=== PATIENT | male | born 1985 | race Caucasian/White ===

== ENCOUNTER 2016-03-08 08:10 | Emergency (ER) | payer OTHER, SELFPAY ==
[2016-03-08 08:27] VITALS: BP 129/86; PULSE 85; O2SAT 100
--- NOTE | 2016-03-08 08:38 | ERPHSYRPT ---
- History of Present Illness Time Seen by Provider: 03/08/16 08:29 Source: patient Exam Limitations: no limitations Patient Subjective Stated Complaint: states he fell two to three steps off a ladder this am Triage Nursing Assessment: ambulated to room per self without difficulty. skin w/d, color normal, resp easy. slight swelling noted to right hand. no deformity noted. Physician History: The patient is a 30-year-old male who states he was climbing a ladder to take down [place] on Wednesday at 8 AM at 5F when he slipped and fell off the ladder causing pain to his right thumb and back. He is right-handed. He did not take anything for the pain. He states he is allergic to Toradol because when he had a colonoscopy he was given Toradol and developed a rash while he was still under and had no rash when he recovered from the colonoscopy. He was told that he has an allergy to it. He has a past medical history significant for Crohn's disease and numerous episodes of ingestion of foreign bodies to the GI tract. Pt also states he has history of rectal prolapse and recently the prolapse is not staying in place when he pushes it back in. Occurred: just prior to arrival Reason for Fall: fell from height Injuries/Pain Location: back (and right thumb) Loss of Consciousness: no loss of consciousness Quality: aching Severity of Pain-Max: moderate Severity of Pain-Current: moderate Modifying Factors: Improves With: nothing Associated Symptoms (Fall): back pain, other (right thumb) Allergies/Adverse Reactions: cephalexin monohydrate [From Keflex] Allergy (Verified 03/08/16 08:20) ketorolac tromethamine [From Toradol] Adverse Reaction (Verified 03/08/16 08:20) Home Medications: Dicyclomine HCl 20 mg [Bentyl 20 mg] 20 mg PO TID 03/30/15 [History] Hx Tetanus, Diphtheria Vaccination/Date Given: Yes (2015) Hx Influenza Vaccination/Date Given: Yes Hx Pneumococcal Vaccination/Date Given: No - Review of Systems Constitutional: No Fever, No Chills Eyes: No Symptoms Ears, Nose, & Throat: No Symptoms Respiratory: No Cough, No Dyspnea Cardiac: No Chest Pain, No Edema, No Syncope Abdominal/Gastrointestinal: No Abdominal Pain, No Nausea, No Vomiting, No Diarrhea Genitourinary Symptoms: No Dysuria Musculoskeletal: Back Pain, Fall, Joint Pain (right thumb) Skin: No Rash Neurological: No Dizziness, No Focal Weakness, No Sensory Changes Psychological: No Symptoms Endocrine: No Symptoms Hematologic/Lymphatic: No Symptoms Immunological/Allergic: No Symptoms All Other Systems: Reviewed and Negative - Past Medical History Pertinent Past Medical History: Yes Neurological History: No Pertinent History ENT History: No Pertinent History Cardiac History: No Pertinent History Respiratory History: No Pertinent History Endocrine Medical History: No Pertinent History Musculoskeletal History: No Pertinent History GI Medical History: Crohns Disease, Hepatitis, Other History: No Pertinent History Psycho-Social History: Anxiety, Depression, Other Male Reproductive Disorders: No Pertinent History Other Medical History: 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 multiple scope for foreign body removal - Social History Smoking Status: Never smoker How long have you smoked: 10 Exposure to second hand smoke: Yes Drug Use: none Patient Lives Alone: No - Nursing Vital Signs Nursing Vital Signs: Initial Vital Signs Temperature 98 F Temperature Source Oral Pulse Rate 85 Respiratory Rate 16 Blood Pressure 129/86 Pain Intensity 8 - Adriana Coma Score Best Eye Response (Adriana): (4) open spontaneously Best Verbal Response (Adriana): (5) oriented Best Motor Response (Rosharon): (6) obeys commands Adriana Total: 15 - Physical Exam General Appearance: no apparent distress, alert Head Injury: no evidence of injury Eye Exam: PERRL/EOMI ENT Exam: airway nml Neck Exam: normal inspection, No tenderness Respiratory/Chest Exam: normal breath sounds, No chest tenderness, No respiratory distress Cardiovascular Exam: normal heart sounds, regular rate/rhythm Gastrointestinal Exam: soft, No tenderness, No distention, No guarding, No ecchymosis Rectal Exam: not done Back Exam: muscle spasm (bilateral paraspinous spasm and tenderness) Extremity Exam: limited range of motion (rilght thumb), evidence of injury, swelling (base of right thumb) Neurologic Exam: alert, oriented x 3, cooperative, sensation nml, No motor deficits Skin Exam: normal color, warm, dry SpO2 Interpretation: normal SpO2: 100 Oxygen Delivery: Room Air Ordered Tests: Active Orders 24 hr Category Date Time Status Ice Pack, Apply PRN Care 03/08/16 08:48 Active HAND (MINIMUM 3 VIEWS) Stat Exams 03/08/16 08:45 Ordered LUMBAR LIMITED (2 OR 3 VIEWS) Stat Exams 03/08/16 08:46 Ordered WRIST (MIN 3 VIEWS) Stat Exams 03/08/16 08:46 Ordered Medication Summary Discontinued Medications Generic Name Dose Route Start Last Admin Trade Name Freq PRN Reason Stop Dose Admin Acetaminophen 975 mg 03/08/16 08:45 Tylenol 325 Mg PO 03/08/16 08:46 STAT ONE - Progress Progress Note: 03/08/16 08:57 Pt left AMA before xrays were performed. - Departure Time of Disposition: 08:59 Departure Disposition: AMA Clinical Impression: Left against medical advice Condition: Stable Critical Care Time: No
[2016-03-08] MEDS ORDERED: TYLENOL 325 MG PO ONE (08:45)
== END 2016-03-08 08:58 | disposition left against medical advice (07) ==
LOC: ED 08:10
DX: M54.9 Dorsalgia, unspecified (principal); M79.644 Pain in right finger(s); W11.XXXA Fall on and from ladder, initial encounter
CPT/HCPCS: 99282

== ENCOUNTER 2016-06-22 15:36 | Emergency (ER) | payer OTHER, SELFPAY ==
[2016-06-22] MEDS ORDERED: Sodium Chloride 0.9% 1000 ML 1,000 ML IV STA (16:08)
[2016-06-22] MEDS ORDERED: Sodium Chloride 0.9% 1000 ML 1,000 ML ONE (16:10)
[2016-06-22 16:19] LABS: BASOPHIL % 0.2 % (0.0-0.4); Eosinophil % 0.2 % (0.00-5.0); Granulocytes % 88.9 % (36.0-66.0); Lymphocytes % 9.8 % (24.0-44.0); Mean Cell Volume 94.7 fl (78-100); Mean Corpuscular Hemoglobin 29.8 pg (26-32); Monocytes % 0.9 % (0.0-12.0); Platelet Count 233 K/mm3 (150-450); Red Blood Count 3.99 M/mm3 (4.1-5.6); Red Cell Distribution Width 15.4 % (11.5-14.0); White Blood Count 6.6 K/mm3 (4.0-10.5)
[2016-06-22] MEDS ORDERED: Zofran 4 MG/2 ML VIAL IV ONE (16:39)
[2016-06-22] MEDS ORDERED: Hydromorphone 1 mg/ml Ampule IV ONE (16:39)
--- NOTE | 2016-06-22 16:40 | ERPHSYRPT ---
- History of Present Illness Time Seen by Provider: 06/22/16 15:50 Historian: patient Exam Limitations: clinical condition Patient Subjective Stated Complaint: ems reports pt called [address] office for abdominal pain. pt states he had rectal surgery 1 month ago and began having rectal bleeding this morning after having a bowel movement. pt states he became dizzy this morning and fell in his bathroom. Triage Nursing Assessment: pt pink, warm, dry. abdomen soft tender across abdomen. pt afebrile. pt alert and oriented x3. Physician History: PATIENT WITH A HISTORY OF CROHNS WITH PREVIOUS BOWEL RESECTION, HISTORY OF RECTAL PROLAPSE WITH REPAIR 07/2015 AND 04/2016 COMPLAINS OF PAIN LOWER ABDOMEN UPON DEFECATION ASSOCIATED WITH RECTAL BLEEDING. DENIES NAUSEA, EMESIS OR FEVER. Timing/Duration: today Activities at Onset: none Quality: throbbing Abdominal Pain Onset Location: LLQ, suprapubic Pain Radiation: no radiation Severity of Pain-Max: severe Severity of Pain-Current: severe Modifying Factors: Improves With: defecating Associated Symptoms: other (BLOOD IN STOOL) Previous symptoms: same symptoms as today Allergies/Adverse Reactions: cephalexin monohydrate [From Keflex] Allergy (Verified 06/22/16 15:46) ketorolac tromethamine [From Toradol] Adverse Reaction (Verified 06/22/16 15:46) Home Medications: Dicyclomine HCl 20 mg [Bentyl 20 mg] 20 mg PO TID 03/30/15 [History] Prednisone 20 mg PO DAILY 06/22/16 [History] Hx Tetanus, Diphtheria Vaccination/Date Given: Yes (up to date) Hx Influenza Vaccination/Date Given: Yes Hx Pneumococcal Vaccination/Date Given: Yes Immunizations Up to Date: Yes - Review of Systems Constitutional: No Fever, No Chills Eyes: No Symptoms Ears, Nose, & Throat: No Symptoms Respiratory: No Cough, No Dyspnea Cardiac: No Chest Pain, No Edema, No Syncope Abdominal/Gastrointestinal: Abdominal Pain, Hematochezia, No Nausea, No Vomiting , No Diarrhea Genitourinary Symptoms: No Symptoms, No Dysuria Musculoskeletal: No Symptoms, No Back Pain, No Neck Pain Skin: No Symptoms, No Rash Neurological: No Dizziness, No Focal Weakness, No Sensory Changes Psychological: No Symptoms Endocrine: No Symptoms All Other Systems: Reviewed and Negative - Past Medical History Pertinent Past Medical History: Yes Neurological History: No Pertinent History ENT History: No Pertinent History Cardiac History: No Pertinent History Respiratory History: No Pertinent History Endocrine Medical History: No Pertinent History Musculoskeletal History: No Pertinent History GI Medical History: Crohns Disease, Hepatitis, Other History: No Pertinent History Psycho-Social History: Anxiety, Depression, Other Male Reproductive Disorders: No Pertinent History Other Medical History: 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 multiple scope for foreign body removal - Social History Smoking Status: Current every day smoker How long have you smoked: 13 Exposure to second hand smoke: Yes Drug Use: none Patient Lives Alone: No - Nursing Vital Signs Nursing Vital Signs: Initial Vital Signs Temperature 97.9 F Temperature Source Oral Pulse Rate 90 Respiratory Rate 18 Blood Pressure [Right Arm] 122/84 Pain Intensity 5 - Physical Exam General Appearance: no apparent distress, alert Eye Exam: PERRL/EOMI, eyes nml inspection Ears, Nose, Throat Exam: normal ENT inspection, pharynx normal, moist mucous membranes Neck Exam: normal inspection, non-tender, supple, full range of motion Respiratory Exam: normal breath sounds, lungs clear, No respiratory distress Cardiovascular Exam: regular rate/rhythm, normal heart sounds Gastrointestinal/Abdomen Exam: soft, normal bowel sounds, tenderness (LLQ, SUPRAPUBIC), No mass Rectal Exam: normal rectal tone, blood Back Exam: normal inspection, normal range of motion, No CVA tenderness, No vertebral tenderness Extremity Exam: normal inspection, normal range of motion, pelvis stable Neurologic Exam: alert, oriented x 3, cooperative, normal mood/affect, nml cerebellar function, sensation nml, No motor deficits Skin Exam: normal color, warm, dry SpO2 Interpretation: normal SpO2: 98 Oxygen Delivery: Room Air - CT Exams Abdomen/Pelvis CT Interpretation: Tele-radiologist Report (NO ACUTE FINDINGS, NO FINDINGS TO SUGGEST ACUTE APPENDICITIS, SURGICAL SUTURES IN THE RECTUM, THE APPEARANCE OF THE RECTUM IS UNCHANGED) Ordered Tests: Active Orders 24 hr Category Date Time Status IV Insertion STAT Care 06/22/16 16:09 Active Orthostatic Vital Signs STAT Care 06/22/16 15:48 Active ABDOMEN AND PELVIS W CONTRAST [CT] Stat Exams 06/22/16 16:50 Taken BMP Stat Lab 06/22/16 15:56 Completed CBC W DIFF Stat Lab 06/22/16 15:56 Completed Occult Blood,Stool Other Stat Lab 06/22/16 16:29 Completed PROTIME WITH INR Stat Lab 06/22/16 15:56 Completed Medication Summary Discontinued Medications Generic Name Dose Route Start Last Admin Trade Name Freq PRN Reason Stop Dose Admin Hydromorphone HCl 1 mg 06/22/16 16:39 06/22/16 16:51 Hydromorphone 1 Mg/Ml Ampule IV 06/22/16 16:40 1 mg STAT ONE Administration Hydromorphone HCl Confirm 06/22/16 16:49 Hydromorphone 1 Mg/Ml Ampule Administered 06/22/16 16:50 Dose 1 mg .ROUTE .STK-MED ONE Sodium Chloride 1,000 mls @ 999 mls/hr 06/22/16 16:08 06/22/16 16:10 Sodium Chloride 0.9% 1000 Ml IV 06/22/16 17:08 999 mls/hr .Q1H1M STA Administration Sodium Chloride Confirm 06/22/16 16:10 Sodium Chloride 0.9% 1000 Ml Administered 06/22/16 16:11 Dose 1,000 mls @ ud .ROUTE .STK-MED ONE Ondansetron HCl 4 mg 06/22/16 16:39 06/22/16 16:50 Zofran 4 Mg/2 Ml Vial IV 06/22/16 16:40 4 mg STAT ONE Administration Ondansetron HCl Confirm 06/22/16 16:48 Zofran 4 Mg/2 Ml Vial Administered 06/22/16 16:49 Dose 4 mg .ROUTE .STK-MED ONE Lab/Rad Data: Laboratory Result Diagrams 06/22/16 15:56 06/22/16 15:56 Laboratory Results 06/22/16 06/22/16 06/22/16 Range/Units 16:29 15:56 15:56 WBC (4.0-10.5) K/mm3 RBC (4.1-5.6) M/mm3 Hgb (12.5-18.0) gm/dl Hct (42-50) % MCV (78-100) fl MCH (26-32) pg MCHC (32-36) g/dl RDW (11.5-14.0) % Plt Count (150-450) K/mm3 MPV (6-9.5) fl Gran % (36.0-66.0) % Lymphocytes % (24.0-44.0) % Monocytes % (0.0-12.0) % Eosinophils % (0.00-5.0) % Basophils % (0.0-0.4) % Basophils # (0-0.4) INR 1.01 (0.8-3.0) Sodium (136-145) mEq/L Potassium (3.5-5.1) mEq/L Chloride (98-107) mEq/L Carbon Dioxide (21-32) mEq/L Anion Gap (5-15) MEQ/L BUN (9-20) mg/dL Creatinine (0.55-1.30) mg/dl Estimated GFR ML/MIN Glucose (70-110) MG/DL Calcium (8.5-10.1) mg/dL Stool Occult Blood POSITIVE (Negative) ABO Group O Rh Factor POSITIVE Antibody Screen NEGATIVE (NEGATIVE) 06/22/16 06/22/16 Range/Units 15:56 15:56 WBC 6.6 (4.0-10.5) K/mm3 RBC 3.99 L (4.1-5.6) M/mm3 Hgb 11.9 L (12.5-18.0) gm/dl Hct 37.8 L (42-50) % MCV 94.7 (78-100) fl MCH 29.8 (26-32) pg MCHC 31.5 L (32-36) g/dl RDW 15.4 H (11.5-14.0) % Plt Count 233 (150-450) K/mm3 MPV 10.0 H (6-9.5) fl Gran % 88.9 H (36.0-66.0) % Lymphocytes % 9.8 L (24.0-44.0) % Monocytes % 0.9 (0.0-12.0) % Eosinophils % 0.2 (0.00-5.0) % Basophils % 0.2 (0.0-0.4) % Basophils # 0.01 (0-0.4) INR (0.8-3.0) Sodium 140 (136-145) mEq/L Potassium 4.5 (3.5-5.1) mEq/L Chloride 106 (98-107) mEq/L Carbon Dioxide 22.5 (21-32) mEq/L Anion Gap 16.3 H (5-15) MEQ/L BUN 14 (9-20) mg/dL Creatinine 1.30 (0.55-1.30) mg/dl Estimated GFR > 60 ML/MIN Glucose 160 H (70-110) MG/DL Calcium 8.8 (8.5-10.1) mg/dL Stool Occult Blood (Negative) ABO Group Rh Factor Antibody Screen (NEGATIVE) - Progress Progress Note: 06/22/16 19:57 PATIENT GIVEN IV NORMAL SALINE 1 LITER BOLUS, ZOFRAN 4MG, DILAUDID 1MG IV Discussed with Dr.: Other (CONSULTED THE PATIENT'S COLORECTAL SURGEON DRILL HAND DR LOVELL AT [id number] AND SCHEDULED FOLLOWUP) Counseled pt/family regarding: lab results, diagnosis, need for follow-up, rad results - Departure Time of Disposition: 20:05 Departure Disposition: Home Clinical Impression: RECTAL BLEEDING, HISTORY OF RECTAL PROLAPSE Condition: Stable Critical Care Time: No Additional Instructions: CALL YOUR COLORECTAL SURGEON DR KINDRA MIDDLETON AT TOMORROW TO SCHEDULE A FOLLOWUP APPOINTMENT, AND TO OBTAIN A FAMILY PHYSICIAN. RETURN TO THE EMERGENCY ROOM FOR ONSET OF WEAKNESS, DIZZINESS OR PERSISTENT RECTAL BLEEDING.
[2016-06-22 16:42] LABS: ANION GAP 16.3 MEQ/L (5-15); BLOOD UREA NITROGEN 14 mg/dL (9-20); CHLORIDE 106 mEq/L (98-107); Carbon Dioxide 22.5 mEq/L (21-32); Glucose 160 MG/DL (70-110); Potassium 4.5 mEq/L (3.5-5.1); SODIUM 140 mEq/L (136-145)
[2016-06-22 16:43] LABS: INR 1.01 (0.8-3.0); PROTIME 11.3 SECONDS (8.83-12.87)
[2016-06-22] MEDS ORDERED: Zofran 4 MG/2 ML VIAL ONE (16:48)
[2016-06-22] MEDS ORDERED: Hydromorphone 1 mg/ml Ampule ONE (16:49)
[2016-06-22 20:14] VITALS: BP 126/68; PULSE 88; O2SAT 99
--- NOTE | 2016-06-23 08:40 | XRAY ---
Indication: Lower abdominal pain. Rectal bleeding. History of Crohn's disease. Multiple contiguous axial images obtained through the abdomen and pelvis using 80 cc Isovue 370 contrast only. Comparison: Noncontrast exam April 01, 2015. Lung bases essentially clear. Heart is not enlarged. Noncontrasted stomach and bowel loops appear nonobstructed. Stable distal rectal postsurgical changes. There is now moderate diffuse scattered colonic fecal debris throughout. No free fluid/air. Previous foreign-body has passed. Again a few calcified splenic granulomas. Remaining liver, gallbladder, pancreas, spleen, adrenal glands, kidneys, ureters, bladder, and aorta appear normal in CT appearance and attenuation. No pathologic retroperitoneal lymphadenopathy. Osseous structures intact. Impression: 1. Fecal stasis without obstruction. 2. No acute intra-abdominal/pelvic abnormalities. Comment: Preliminary interpretation was made by [facility]. No critical discrepancy. CT DI 10.59
== END 2016-06-22 20:13 | disposition home or self-care (01) ==
LOC: ED 15:36
DX: K62.5 Hemorrhage of anus and rectum (principal); Z87.898 Personal history of other specified conditions; R10.32 Left lower quadrant pain; R10.9 Unspecified abdominal pain; Z79.899 Other long term (current) drug therapy
CPT/HCPCS: 36000; 36415; 74177; 80048; 82272; 85025; 85610; 86850; 86900; 86901; 96360; 96374; 96375; 99284; 99285; J1170; J2405

== ENCOUNTER 2016-06-23 10:47 | Emergency (ER) | payer OTHER, SELFPAY ==
[2016-06-23] MEDS ORDERED: Sodium Chloride 0.9% 1000 ML 1,000 ML IV STA (11:06)
[2016-06-23] MEDS ORDERED: Sodium Chloride 0.9% 1000 ML 1,000 ML ONE (11:14)
[2016-06-23 11:29] LABS: BASOPHIL % 0.4 % (0.0-0.4); Lymphocytes % 30.9 % (24.0-44.0); Mean Cell Volume 94.3 fl (78-100); Mean Corpuscular Hemoglobin 29.5 pg (26-32); Mean Platelet Volume 9.8 fl (6-9.5); Monocytes % 7.7 % (0.0-12.0); Platelet Count 227 K/mm3 (150-450); Red Cell Distribution Width 15.5 % (11.5-14.0)
[2016-06-23 11:45] LABS: COMPLETE URINE MICROSCOPIC? YES; Collection Type VOID; Mucus MODERATE /HPF (NEGATIVE); Ph 6.5 (5-6)
[2016-06-23 11:45] LABS: ALBUMIN 3.2 g/dL (3.4-5.0); ALKALINE PHOSPHATASE 85 U/L (46-116); ANION GAP 12.6 MEQ/L (5-15); BILIRUBIN,TOTAL 0.2 mg/dL (0.2-1.0); BLOOD UREA NITROGEN 10 mg/dL (9-20); CHLORIDE 106 mEq/L (98-107); Carbon Dioxide 26.1 mEq/L (21-32); Glucose 87 MG/DL (70-110); LIPASE 161 U/L (73-393); Potassium 3.7 mEq/L (3.5-5.1); SGOT/AST 18 U/L (15-37); SGPT/ALT 29 U/L (12-78); SODIUM 141 mEq/L (136-145); Total Protein 6.5 gm/dL (6.4-8.2)
[2016-06-23 11:46] LABS: Bacteria FEW /HPF (NEGATIVE)
--- NOTE | 2016-06-23 11:52 | ERPHSYRPT ---
- History of Present Illness Time Seen by Provider: 06/23/16 10:57 Historian: patient, EMS (gave fentanyl PHOTOCOPIER TECHNICIAN) Patient Subjective Stated Complaint: pt states he had a bowel movement on at 0900 and noticed blood in stool. pt was seen in er last pm for that episode of bleeding and abdominal pain. pt states he has had another episode today at home with rectal bleeding. denies any fever. pt c/o rectal pain and lower abdominal pain. Triage Nursing Assessment: pt pink, warm, moist to dry. abdomen distended bowel sounds present in all 4 quads. Physician History: CC: rectal bleeding Hx; 31 y/o male patient. He had repeat rectal prolapse surgery one month ago at [facility] per Dr Middleton. He was doing well. He now has lower abd pain , rectal bleeding. Feels as if something tore in belly. He has rectal bleeding. No fever or chills. Not hungry. He was in ER last night and had normal CT abdomen. Reports hx of crohns. Allergies/Adverse Reactions: cephalexin monohydrate [From Keflex] Allergy (Verified 06/23/16 10:54) ketorolac tromethamine [From Toradol] Adverse Reaction (Verified 06/23/16 10:54) Home Medications: Dicyclomine HCl 20 mg [Bentyl 20 mg] 20 mg PO TID 03/30/15 [History] Prednisone 20 mg PO DAILY 06/22/16 [History] Hx Tetanus, Diphtheria Vaccination/Date Given: Yes (up to date) Hx Influenza Vaccination/Date Given: Yes Hx Pneumococcal Vaccination/Date Given: Yes Immunizations Up to Date: Yes - Review of Systems Constitutional: No Fever, No Chills Eyes: No Symptoms Ears, Nose, & Throat: No Symptoms Respiratory: No Cough, No Dyspnea Cardiac: No Chest Pain Abdominal/Gastrointestinal: Abdominal Pain, Nausea, Hematochezia, No Vomiting Genitourinary Symptoms: No Dysuria Musculoskeletal: No Back Pain Skin: No Rash All Other Systems: Reviewed and Negative - Past Medical History Pertinent Past Medical History: Yes Neurological History: No Pertinent History ENT History: No Pertinent History Cardiac History: No Pertinent History Respiratory History: No Pertinent History Endocrine Medical History: No Pertinent History Musculoskeletal History: No Pertinent History GI Medical History: Crohns Disease, Hepatitis, Other History: No Pertinent History Psycho-Social History: Anxiety, Depression, Other Male Reproductive Disorders: No Pertinent History Other Medical History: Hepatitis - Past Surgical History Past Surgical History: Yes Neuro Surgical History: No Pertinent History Cardiac: No Pertinent History Respiratory: No Pertinent History Gastrointestinal: Colon Resection Genitourinary: No Pertinent History Musculoskeletal: No Pertinent History Male Surgical History: No Pertinent History Other Surgical History: colon resection for rectal prolapse. multiple scope for foreign body removal - Social History Smoking Status: Current every day smoker How long have you smoked: 15 Exposure to second hand smoke: No Drug Use: none Patient Lives Alone: No - Nursing Vital Signs Nursing Vital Signs: Initial Vital Signs Temperature 98.1 F Temperature Source Oral Pulse Rate 71 Respiratory Rate 18 Blood Pressure [Right Arm] 117/73 Pain Intensity 7 - Physical Exam General Appearance: alert Eye Exam: PERRL/EOMI Ears, Nose, Throat Exam: normal ENT inspection, moist mucous membranes Neck Exam: normal inspection, non-tender, supple Respiratory Exam: normal breath sounds, lungs clear Cardiovascular Exam: regular rate/rhythm, No murmur Gastrointestinal/Abdomen Exam: soft, tenderness (mild fullness lower abdomen) Male Genitalia Exam: No hernia, No testicular tenderness Rectal Exam: other (good tone, some red rectal blood, no fullness or tenderness specifically) Back Exam: normal inspection Extremity Exam: normal inspection, normal range of motion Neurologic Exam: alert, oriented x 3, cooperative, sensation nml, No motor deficits Skin Exam: warm, dry, No rash SpO2 Interpretation: normal SpO2: 100 Oxygen Delivery: Room Air - Course Nursing assessment & vital signs reviewed: Yes - Radiology Exams AAS X-ray Interpretation: Reviewed by me, Negative Ordered Tests: Active Orders 24 hr Category Date Time Status Clean Catch Urine Specimen STAT Care 06/23/16 11:06 Active IV Insertion STAT Care 06/23/16 10:55 Active OBSTR/ACUTE ABDOMEN SERIES Stat Exams 06/23/16 11:06 Completed CBC W DIFF Stat Lab 06/23/16 10:55 Completed CMP Stat Lab 06/23/16 10:55 Completed Erythrocyte Sedimentation Rate Stat Lab 06/23/16 10:55 Completed LIPASE Stat Lab 06/23/16 10:55 Completed Lactic Acid Urgent Lab 06/23/16 11:06 Completed UA W/ MICROSCOPIC Stat Lab 06/23/16 11:06 Completed Urine Triage Profile Stat Lab 06/23/16 11:06 Completed Medication Summary Discontinued Medications Generic Name Dose Route Start Last Admin Trade Name Pollo PRN Reason Stop Dose Admin Sodium Chloride 1,000 mls @ 999 mls/hr 06/23/16 11:06 06/23/16 11:42 Sodium Chloride 0.9% 1000 Ml IV 06/23/16 12:06 999 mls/hr .Q1H1M STA Administration Sodium Chloride Confirm 06/23/16 11:14 Sodium Chloride 0.9% 1000 Ml Administered 06/23/16 11:15 Dose 1,000 mls @ ud .ROUTE .STK-MED ONE Lab/Rad Data: Laboratory Result Diagrams 06/23/16 10:55 06/23/16 10:55 Laboratory Results 06/23/16 06/23/16 06/23/16 Range/Units 11:06 11:06 11:06 WBC (4.0-10.5) K/mm3 RBC (4.1-5.6) M/mm3 Hgb (12.5-18.0) gm/dl Hct (42-50) % MCV (78-100) fl MCH (26-32) pg MCHC (32-36) g/dl RDW (11.5-14.0) % Plt Count (150-450) K/mm3 MPV (6-9.5) fl Gran % (36.0-66.0) % Lymphocytes % (24.0-44.0) % Monocytes % (0.0-12.0) % Eosinophils % (0.00-5.0) % Basophils % (0.0-0.4) % Basophils # (0-0.4) ESR (0-15) mm/hr Sodium (136-145) mEq/L Potassium (3.5-5.1) mEq/L Chloride (98-107) mEq/L Carbon Dioxide (21-32) mEq/L Anion Gap (5-15) MEQ/L BUN (9-20) mg/dL Creatinine (0.55-1.30) mg/dl Estimated GFR ML/MIN Glucose (70-110) MG/DL Lactic Acid 1.1 (0.4-2.0) Calcium (8.5-10.1) mg/dL Total Bilirubin (0.2-1.0) mg/dL AST (15-37) U/L ALT (12-78) U/L Alkaline Phosphatase (46-116) U/L Serum Total Protein (6.4-8.2) gm/dL Albumin (3.4-5.0) g/dL Lipase (73-393) U/L Ur Collection Type VOID Urine Color YELLOW (YELLOW) Urine Appearance CLEAR (CLEAR) Urine pH 6.5 (5-6) Ur Specific [place] 1.025 (1.005-1.025) Urine Protein TRACE (Negative) Urine Glucose (UA) NEGATIVE (NEGATIVE) mg/dL Urine Ketones TRACE (NEGATIVE) Urine Nitrite NEGATIVE (NEGATIVE) Urine Bilirubin NEGATIVE (NEGATIVE) Urine Urobilinogen 1 (0-1) mg/dL Urine WBC (Auto) NEGATIVE (NEGATIVE) Urine RBC (Auto) NEGATIVE (0-5) Rajesh/ul Urine Bacteria FEW (NEGATIVE) /HPF Urine Mucus MODERATE (NEGATIVE) /HPF Urine Opiates Level NEG. (NEGATIVE) Ur Methadone NEG. (NEGATIVE) Urine Barbiturates NEG. (NEGATIVE) Ur Phencyclidine (PCP) NEG. (NEGATIVE) Urine Amphetamine NEG. (NEGATIVE) U Benzodiazepine Level POS. (NEGATIVE) Urine Cocaine NEG. (NEGATIVE) Urine Marijuana (THC) NEG. (NEGATIVE) Specimen Received 06/23/16 1130 06/23/16 06/23/16 06/23/16 Range/Units 10:55 10:55 10:55 WBC 8.0 (4.0-10.5) K/mm3 RBC 4.00 L (4.1-5.6) M/mm3 Hgb 11.8 L (12.5-18.0) gm/dl Hct 37.7 L (42-50) % MCV 94.3 (78-100) fl MCH 29.5 (26-32) pg MCHC 31.3 L (32-36) g/dl RDW 15.5 H (11.5-14.0) % Plt Count 227 (150-450) K/mm3 MPV 9.8 H (6-9.5) fl Gran % 59.0 (36.0-66.0) % Lymphocytes % 30.9 (24.0-44.0) % Monocytes % 7.7 (0.0-12.0) % Eosinophils % 2.0 (0.00-5.0) % Basophils % 0.4 (0.0-0.4) % Basophils # 0.03 (0-0.4) ESR 14 (0-15) mm/hr Sodium 141 (136-145) mEq/L Potassium 3.7 (3.5-5.1) mEq/L Chloride 106 (98-107) mEq/L Carbon Dioxide 26.1 (21-32) mEq/L Anion Gap 12.6 (5-15) MEQ/L BUN 10 (9-20) mg/dL Creatinine 1.12 (0.55-1.30) mg/dl Estimated GFR > 60 ML/MIN Glucose 87 (70-110) MG/DL Lactic Acid (0.4-2.0) Calcium 8.4 L (8.5-10.1) mg/dL Total Bilirubin 0.2 (0.2-1.0) mg/dL AST 18 (15-37) U/L ALT 29 (12-78) U/L Alkaline Phosphatase 85 (46-116) U/L Serum Total Protein 6.5 (6.4-8.2) gm/dL Albumin 3.2 L (3.4-5.0) g/dL Lipase 161 (73-393) U/L Ur Collection Type Urine Color (YELLOW) Urine Appearance (CLEAR) Urine pH (5-6) Ur Specific [place] (1.005-1.025) Urine Protein (Negative) Urine Glucose (UA) (NEGATIVE) mg/dL Urine Ketones (NEGATIVE) Urine Nitrite (NEGATIVE) Urine Bilirubin (NEGATIVE) Urine Urobilinogen (0-1) mg/dL Urine WBC (Auto) (NEGATIVE) Urine RBC (Auto) (0-5) Rajesh/ul Urine Bacteria (NEGATIVE) /HPF Urine Mucus (NEGATIVE) /HPF Urine Opiates Level (NEGATIVE) Ur Methadone (NEGATIVE) Urine Barbiturates (NEGATIVE) Ur Phencyclidine (PCP) (NEGATIVE) Urine Amphetamine (NEGATIVE) U Benzodiazepine Level (NEGATIVE) Urine Cocaine (NEGATIVE) Urine Marijuana (THC) (NEGATIVE) Specimen Received - Progress Progress Note: 06/23/16 14:07 Pt stable. Advised we are calling his surgeon in [place]. He got tired of waiting and decided to leave the hospital. Advised we need to speak to his surgeon to rule out a complication from his surgery. He understands risks and wants to leave. He was given pain medicine in the ambulance. He oftens becomes confrontational about pain medications. He states he ran out of his pain pills weeks ago. INSPECT reviewed. He is leaving AMA. Counseled pt/family regarding: lab results, diagnosis, need for follow-up, rad results - Departure Time of Disposition: 14:09 Departure Disposition: AMA Clinical Impression: Abdominal pain, recent rectal prolapse repair, Rectal bleeding Condition: Stable Critical Care Time: No Referrals: DOCTOR,NO FAMILY [Primary Care Provider] - KINDRA MIDDLETON [NON-STAFF PHY W/O PRIVILEGES] - Instructions: Abdominal Pain-Adult, Rectal Bleed Additional Instructions: Return for problems or concerns. Follow up with Dr Briceno.
--- NOTE | 2016-06-23 12:06 | XRAY ---
Indication: Lower abdominal pain. Hematuria. Comparison: March 12, 2015. 2 views of the abdomen demonstrates mild/moderate diffuse scattered colonic fecal debris without obstruction. Stable left pelvic phlebolith. Solid organs and osseous structures unremarkable. Single frontal chest demonstrates right lung calcified granuloma. Remaining heart, lungs, and bony thorax normal. Impression: 1. Fecal stasis without obstruction similar to CT abdomen/pelvis 1 day earlier. 2. Nonacute one view chest.
[2016-06-23 14:11] VITALS: O2SAT 100
[2016-06-23 14:17] VITALS: BP 108/70; PULSE 79
== END 2016-06-23 14:17 | disposition home or self-care (01) ==
LOC: ED 10:47
DX: Z98.890 Other specified postprocedural states (principal); K62.5 Hemorrhage of anus and rectum; K50.90 Crohn's disease, unspecified, without complications; R11.0 Nausea; K92.1 Melena
CPT/HCPCS: 36415; 74022; 80053; 80307; 81000; 83605; 83690; 85025; 85652; 96360; 99284

== ENCOUNTER 2017-02-08 09:55 | Emergency (ER) | payer OTHER ==
--- NOTE | 2017-02-08 10:31 | ERPHSYRPT ---
- History of Present Illness Time Seen by Provider: 02/08/17 10:17 Source: patient Patient Subjective Stated Complaint: pt has dry cough, no fever,clear runny nose for 4 days now Triage Nursing Assessment: pt hoarse, alert, resp easy, skin w/d chest clear Physician History: CC: cough Hx: Few day hx of cough, congestion, tightness. No fever or chills. He is a smoker. States off of suboxone. Did not follow up for his colostomy. Symptoms moderate. No family doctor. Allergies/Adverse Reactions: cephalexin monohydrate [From Keflex] Allergy (Verified 02/08/17 10:07) ketorolac tromethamine [From Toradol] Adverse Reaction (Verified 02/08/17 10:07) Hx Tetanus, Diphtheria Vaccination/Date Given: Yes (up to date) Hx Influenza Vaccination/Date Given: Yes Hx Pneumococcal Vaccination/Date Given: Yes Immunizations Up to Date: Yes - Review of Systems Constitutional: Malaise, No Fever, No Chills Eyes: No Symptoms Ears, Nose, & Throat: Nose Congestion Respiratory: Cough Abdominal/Gastrointestinal: No Nausea, No Vomiting Skin: No Rash Neurological: No Headache All Other Systems: Reviewed and Negative - Past Medical History Pertinent Past Medical History: Yes Neurological History: No Pertinent History ENT History: No Pertinent History Cardiac History: No Pertinent History Respiratory History: No Pertinent History Endocrine Medical History: No Pertinent History Musculoskeletal History: No Pertinent History GI Medical History: Crohns Disease, Hepatitis, Other History: No Pertinent History Psycho-Social History: Anxiety, Depression, Other Male Reproductive Disorders: No Pertinent History Other Medical History: Hepatitis - Past Surgical History Past Surgical History: Yes Neuro Surgical History: No Pertinent History Cardiac: No Pertinent History Respiratory: No Pertinent History Gastrointestinal: Colon Resection Genitourinary: No Pertinent History Musculoskeletal: No Pertinent History Male Surgical History: No Pertinent History Other Surgical History: colon resection for rectal prolapse. multiple scope for foreign body removal - Social History Smoking Status: Current every day smoker How long have you smoked: 15 Exposure to second hand smoke: Yes Drug Use: none Patient Lives Alone: No - Nursing Vital Signs Nursing Vital Signs: Initial Vital Signs Temperature 97.5 F 02/08/17 10:01 Pulse Rate 79 02/08/17 10:01 Respiratory Rate 16 02/08/17 10:01 Blood Pressure 139/81 02/08/17 10:01 O2 Sat by Pulse Oximetry 100 02/08/17 10:01 Pain Scale Pain Intensity 7 - Physical Exam General Appearance: alert Eye Exam: PERRL/EOMI Ears, Nose, Throat Exam: normal ENT inspection, moist mucous membranes Neck Exam: normal inspection, non-tender, supple Respiratory Exam: normal breath sounds Cardiovascular Exam: regular rate/rhythm, No murmur Gastrointestinal/Abdomen Exam: soft, No tenderness, No distention Extremity Exam: normal inspection, normal range of motion Neurologic Exam: alert, oriented x 3, cooperative, sensation nml, No motor deficits Skin Exam: warm, dry, No rash SpO2 Interpretation: normal SpO2: 100 Oxygen Delivery: Room Air - Course Nursing assessment & vital signs reviewed: Yes - Progress Progress Note: 02/08/17 10:27 Advised smoking cessation. Rx natalee cabrera MDI. Counseled pt/family regarding: diagnosis, need for follow-up, smoking cessation - Departure Time of Disposition: 10:27 Departure Disposition: Home Clinical Impression: Acute bronchitis, Smoker Condition: Stable Critical Care Time: No Referrals: DOCTOR,NO FAMILY [NON-STAFF PHY W/O PRIVILEGES] - Instructions: Cough -- Adult, Quit Smoking, Bronchitis Additional Instructions: UPPER RESPIRATORY INFECTIONS 1. The signs and symptoms of a cold may last up to 10 days. These illnesses are due to viruses which are not treatable with antibiotics. 2. The following suggestions can aid in recovery and to minimize symptoms: A. Increase fluid intake. B. Acetaminophen or Ibuprofen as directed. C. Avoid smoking environments as this will increase the risk of developing pneumonia. D. For children, may use a cool mist vaporizer in the child's room. 3. Contact your Family Physician if you note: A. Persisten fever >103 for more than 3 days B. Breathing difficulty C. Productive cough of yellow/green sputum D. Illness greater than 7 days E. Persistent vomiting F. Stiff neck Rx doxycycline. Rx albuterol MDI. Prescriptions: Albuterol Sulfate [Albuterol Sulfate Hfa] 2 puff IH Q4-6HPRN PRN #1 [id number] PRN Reason: cough or wheeze Doxycycline Hyclate 100 mg [Vibramycin 100 MG] 1 tab PO BID #14 tab
[2017-02-08 10:41] VITALS: BP 120/74; PULSE 70; O2SAT 97
== END 2017-02-08 10:30 | disposition home or self-care (01) ==
LOC: ED 09:55
DX: J20.9 Acute bronchitis, unspecified (principal); F17.200 Nicotine dependence, unspecified, uncomplicated; K50.90 Crohn's disease, unspecified, without complications
CPT/HCPCS: 99282

== ENCOUNTER 2017-05-31 19:57 | Emergency (ER) | payer OTHER ==
[2017-05-31 20:23] VITALS: BP 127/85; PULSE 81; O2SAT 98
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
== END 2017-05-31 20:30 | disposition left against medical advice (07) ==
LOC: ED 19:57
DX: R51 Headache (principal); R55 Syncope and collapse; W19.XXXA Unspecified fall, initial encounter
CPT/HCPCS: 36000; 99282; 99283